=== PATIENT | female | born 2000 | race Caucasian/White ===

== ENCOUNTER 2019-03-20 19:32 | Day surgery (SDC) | payer OTHER ==
[2019-03-20 20:14] VITALS: BP 113/72; TEMP 98.1; BMI 37.3
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
== END 2019-03-20 20:35 | disposition home or self-care (01) ==
LOC: L&D/OP 19:32
PROVIDERS: ATTEND Advanced Practice Midwife
DX: O36.8120 Decreased fetal movements, second trimester, not applicable or unspecified (principal); Z3A.27 27 weeks gestation of pregnancy
CPT/HCPCS: 99281

== ENCOUNTER 2019-06-13 21:31 | Inpatient (IN) | payer OTHER ==
[2019-06-13] MEDS ORDERED: Lidocaine 1% (PF) 30 ML VIAL SC PRN (21:37)
[2019-06-13] MEDS ORDERED: Butorphanol Tartrate 1 MG/ML VIAL SLOW IVP PRN (21:37)
[2019-06-13] MEDS ORDERED: Methylergonovine 0.2 MG/ML VIAL IM PRN (21:37)
[2019-06-13] MEDS ORDERED: NS / Oxytocin 40 units/1000ml 1,000 ML IV PRN (21:37)
[2019-06-13] MEDS ORDERED: Misoprostol 200 MCG TAB PR PRN (21:37)
[2019-06-13] MEDS ORDERED: Ondansetron PF 4 MG/2 ML Vial IVP PRN (21:37)
[2019-06-13] MEDS ORDERED: HYDROcodone/Acetaminophen 5/325 mg Tablet PO PRN ×2 (21:37)
[2019-06-13] MEDS ORDERED: Ibuprofen 800 MG TAB PO PRN (21:37)
[2019-06-13] MEDS ORDERED: hydrALAZINE 20 MG/ML VIAL SLOW IVP PRN (21:37)
[2019-06-13] MEDS ORDERED: Promethazine HCl 25 MG/ML VIAL IM PRN (21:37)
[2019-06-13] MEDS: Lactated Ringer's 1,000 ML IV SCH ×2 (22:00→23:00)
[2019-06-13] MEDS ORDERED: Penicillin G Potassium 5 MILL.UNITS in Sodium Chloride 0.9% 100 ML IVPB SCH (22:00)
[2019-06-13] MEDS: Misoprostol 100 MCG TAB PO SCH (22:59)
[2019-06-13 23:15] VITALS: BMI 38.5
[2019-06-13 23:21] LABS: Hemoglobin 12.3 g/dL (12.0-16.0); Mean Corpuscular HGB CONC 33.4 g/dL (32.0-36.0); Mean Corpuscular Hemoglobin 30.2 pg (27.0-31.0); Mean Corpuscular Volume 90.5 fL (78.0-98.0); Mean Platelet Volume 8.9 fL (7.4-10.4); Platelet Count 240 thou/uL (130-400); Red Blood Cell (RBC) Count 4.08 mill/uL (4.20-5.40); White Blood Cell (WBC) Count 17.2 thou/uL (4.8-10.8)
[2019-06-13 23:51] LABS: HBSAg Index 0.18 S/CO (0-0.99); Hep B Surf Ag Non-Reactive S/CO (NonReactive)
[2019-06-13 23:54] LABS: Syphilis Antibody Nonreactive (Nonreactive); Syphilis Antibody Index 0.02 S/CO (<1.00 Non-Reactive)
[2019-06-14] MEDS: Fentanyl 4 mcg/Bup 0.1% Cadd 100 ML ONE ×2 (02:16→08:44)
[2019-06-14] MEDS: NS w/ Oxytocin 10 units 500 ML IV SCH ×2 (03:00→15:52)
[2019-06-14] MEDS: Penicillin G 2.5 MILL.units 2.5 MILL.UNITS in Premix Bag 1 BAG IVPB SCH ×6 (03:32→23:45)
[2019-06-14] MEDS: Lactated Ringer's 1,000 ML IV SCH ×2 (07:00→15:52)
--- NOTE | 2019-06-14 08:19 | PDOC.LDHP ---
Labor and Delivery H&P Chief complaint: other (IOL elective) HPI: Pt presents for elective IOL. No concerns Current gestational age (weeks): 39 Due date: 06/15/19 Dating criteria: first trimester ultrasound Grav: 1 Para: 0 Abnormal US findings: No Past Medical History: Obesity Current medications: pre-khadar vitamins Allergies/Adverse Reactions: Allergies Allergy/AdvReac Type Severity Reaction Status Date / Time No Known Allergies Allergy Verified 06/14/19 03:19 - Physical Exam Vital signs reviewed and normal: yes (119/74, pulse 88) General: NAD (, comfortable with regional anehtesia) Lungs: nonlabored breathing Abdomen: gravid FHT: category 1 - Vaginal Exam cm dilated: 4 Effacement: 75% Station: -2 - OB Labs Blood type: A RH: positive Antibody Screen: negative HIV: negative RPR: negative HEPSAg: negative 1 hour GCT: negative GBS: positive Urine drug screen: negative Rubella: immune - Assessment L&D Assessment: elective induction at term - Plan Plan: admit to L&D, cervical ripening, labor augmentation if indicated, GBS antibiotic prophylaxis (AROM at 0815 with copious clear fluid, IUPC placed, titrate pitocin to >200MVUs)
--- NOTE | 2019-06-14 08:22 | PDOC.LDPN ---
Labor & Delivery Progress Note - Subjective Subjective: comfortable - Objective Vital signs reviewed and normal: yes General: NAD, resting Uterine fundus: non tender Dilation: 4 Effacement: 75% Station: -2 FHT: category 1 AROM: clear fluid IUPC placed: yes - Assessment (1) 39 weeks gestation of Code(s): Z3A.39 - 39 WEEKS GESTATION OF Current Visit: Yes Status : Acute (2) Obesity Code(s): E66.9 - OBESITY, UNSPECIFIED Current Visit: Yes Status: Acute (3) Primigravida Code(s): Z34.00 - ENCNTR FOR SUPRVSN OF NORMAL FIRST , UNSP TRIMESTER Current Visit: Yes Status: Acute Plan: pitocin for augmentation
[2019-06-14] MEDS ORDERED: Fentanyl 4 mcg/Bup 0.1% Cadd 100 ML ONE ×2 (08:40→14:29)
[2019-06-14] MEDS ORDERED: Bupivacaine/Epinephrine 0.25% 30 ML VIAL ONE (17:27)
[2019-06-14] MEDS ORDERED: Sodium Chloride 0.9% (PF) 10 ML VIAL ONE (17:27)
[2019-06-14] MEDS ORDERED: Bupivacaine 0.25% HCL 30 ML VIAL ONE (17:27)
--- NOTE | 2019-06-14 18:03 | PDOC.OPDEL ---
OB Operative/Delivery Note Delivery Dr/Surgeon: Ebony Rolle Assist: Cecily Cortez Pre-Delivery Diagnosis: active labor, elective induction, ruptured membrane Procedure/Post Delivery Dx: spontaneous vaginal delivery Weeks gestation: 39 Anesthesia: epidural - Findings A Sex: female Weight: 7 lb 2 oz - 1 min: 8 - 5 min: 9 - Additional Findings/Plan Placenta delivered: spontaneous Repaired Obstetrical Laceration: none Estimated blood loss: 800mL Compilations/Other Findings: Brisk bleeding after delivery of the placenta. Actively managed with bimanual compression. Methergine IM given x 1. EBL 800mL. See nursing notes for QBL. Post delivery plan: routine recovery
[2019-06-14] MEDS ORDERED: Ondansetron PF 4 MG/2 ML Vial IVP PRN (23:11)
[2019-06-14] MEDS ORDERED: Benzocaine-Menthol 82.5 ML CAN TOP PRN (23:11)
[2019-06-14] MEDS ORDERED: Bisacodyl 10 MG SUPP PR PRN (23:11)
[2019-06-14] MEDS ORDERED: Adacel (T-DAP) 0.5 ML SYRINGE IM ONE (23:11)
[2019-06-14] MEDS ORDERED: hydrALAZINE 20 MG/ML VIAL SLOW IVP PRN (23:11)
[2019-06-14] MEDS ORDERED: Misoprostol 200 MCG TAB VAG PRN (23:11)
[2019-06-14] MEDS ORDERED: HYDROcodone/Acetaminophen 5/325 mg Tablet PO PRN ×2 (23:11)
[2019-06-14] MEDS ORDERED: NS / Oxytocin 40 units/1000ml 1,000 ML IV SCH (23:11)
[2019-06-14] MEDS ORDERED: Methylergonovine 0.2 MG/ML VIAL IM PRN (23:11)
[2019-06-14] MEDS ORDERED: Milk Of Magnesia 30 ML UDCUP PO PRN (23:11)
[2019-06-14] MEDS ORDERED: Lanolin Ointment 7 GM TUBE TOP PRN (23:11)
[2019-06-14] MEDS ORDERED: Docusate Calcium (SURFAK) 240 MG CAP PO SCH (23:30)
[2019-06-14] MEDS: Ibuprofen 800 MG TAB PO SCH (23:42)
[2019-06-14] MEDS: Misoprostol 100 MCG TAB PO SCH ×2 (23:45→23:46)
[2019-06-15] MEDS: Ibuprofen 800 MG TAB PO SCH ×3 (06:38→21:42)
[2019-06-15] MEDS: Docusate Calcium (SURFAK) 240 MG CAP PO SCH ×2 (10:25→21:43)
[2019-06-15] MEDS: Ferrous Sulfate 325 MG TAB PO SCH ×2 (10:26→15:32)
[2019-06-16] MEDS: Ibuprofen 800 MG TAB PO SCH (05:45)
--- NOTE | 2019-06-16 07:28 | PDOC.PP ---
Post Progress Note Post Day #: 1 Subjective: She is doing well. is sleepy and not eating well. but overall she feels good and would like to shower PO intake tolerated: yes Flatus: yes Ambulation: yes Weight Weight 211 lb - Physical Examination General: NAD Cardiovascular: no m/r/g, RRR Respiratory: clear to auscultation bilaterally Abdominal: + bowel sounds, lochia (moderate) Fundus firm & at: -1 Extremities: negative homans (B) Skin: no rash Neurological: no gross focal deficits Psychiatric: A&Ox3, normal affect Result Diagrams: 06/13/19 22:55 Additional Labs: Post Labs Blood Type A POSITIVE 06/13/19 23:44 Hep Bs Antigen Non-Reactive S/CO (NonReactive) 06/13/19 22:55 (1) 39 weeks gestation of Code(s): Z3A.39 - 39 WEEKS GESTATION OF Status: Acute (2) Obesity Code(s): E66.9 - OBESITY, UNSPECIFIED Status: Acute (3) Primigravida Code(s): Z34.00 - ENCNTR FOR SUPRVSN OF NORMAL FIRST , UNSP TRIMESTER Status: Acute (4) (spontaneous vaginal delivery) Code(s): O80 - ENCOUNTER FOR FULL-TERM UNCOMPLICATED DELIVERY Status: Acute - Assessment/Plan A:g1 now p1 s/p P: routine pp care Discharge home tomorrow
[2019-06-16] MEDS: Ferrous Sulfate 325 MG TAB PO SCH (08:49)
[2019-06-16] MEDS: Docusate Calcium (SURFAK) 240 MG CAP PO SCH (08:49)
[2019-06-16 08:52] VITALS: BP 88/64; TEMP 98.6
--- NOTE | 2019-06-19 09:05 | PQF ---
[employer] Maintenance Technician Crystal Reports Winform ViewerBode Usman Suazo MICKEY AVENDANO [id number] CLINICAL DOCUMENTATION CLARIFICATION FORM: POST DISCHARGE Addendum to original discharge summary date: ____ Late entry note date: __ DATE: 06/19/2019 ATTN: MICKEY AVENDANO Please exercise your independent, professional judgment in responding to the clarification form. Clinical indicators are provided on the bottom of this form for your review Please check appropriate box(s): [ ] Post bleeding after delivery [ ] Expected bleeding after delivery [ ] Other diagnosis [ ] Unable to determine CLINICAL INDICATORS - SIGNS / SYMPTOMS / LABS - Brisk bleeding after delivery of the shihjzom-FO-Ekbaardcy and delivery note, Sierra Rolle CNM - Estimated Bleeding : 190gb-RK-Ofudfnqzs and delivery noteSierra CNM - Placenta delivered: Peurjrmbayk-KP-Ykuwkbvys and delivery Sierra escalante CNM - 39 weeks gestational -L and D progress note, 06/14Sierra CNM - RBC:4.08L-Laboratory, 06/13 RISK FACTORS - Proceudre: Spontaneous vaginal ckpoqnxw-RG-Fnoqzqwkm and delivery noteSierra CNM TREATMENT: - Actively managed with bimanual bakutlfulzt-CC-Htodwbqwz and delivery noteSierra CNM -methergine IM rimjj-QP-Ubfodwfwm and delivery note, Sierra Rolle CNM (This form is maintained as a part of the permanent medical record) 2014 [employer]. All Rights Reserved Arabella Quiles [not provided] [not provided] MTDD
== END 2019-06-16 11:10 | disposition home or self-care (01) | DRG 807 ==
LOC: L&D 21:31 → 3SW 06-14 23:02
PROVIDERS: ADMIT Student in an Organized Health Care Education/Training Program; ATTEND Student in an Organized Health Care Education/Training Program
PROC: 10E0XZZ Delivery of Products of Conception, External Approach (ICD-10-PCS; principal; 2019-06-15)
PROC: 10907ZC Drainage of Amniotic Fluid, Therapeutic from Products of Conception, Via Natural or Artificial Opening (ICD-10-PCS; 2019-06-15)
PROC: 3E033VJ Introduction of Other Hormone into Peripheral Vein, Percutaneous Approach (ICD-10-PCS; 2019-06-15)
DX: O99.214 Obesity complicating childbirth (principal); Z37.0 Single live birth; Z3A.39 39 weeks gestation of pregnancy; O99.824 Streptococcus B carrier state complicating childbirth
CPT/HCPCS: 36415; 51702; 85027; 86780; 86850; 86900; 86901; 87340; J2001; J2210; J2540; J2590; J3490; S0020